=== PATIENT | male | born 1965 | race Caucasian/White ===

== ENCOUNTER 2021-01-28 12:40 | Outpatient (CLI) | payer OTHER ==
[2021-01-28 14:10] LABS: #Eosinphils 0.4 10x3/uL (0.0-0.5); #Monocytes 0.5 10x3/uL (0.0-1.1); #Neutrophils 4.3 10x3/uL (1.5-8.4); %Basophils 0.6 % (0.0-2.0); %Eosinophils 5.2 % (0.0-6.0); %Lymphocytes 25.7 % (18.0-47.0); %Monocytes 7.2 % (0.0-10.0); Hemoglobin 15.8 g/dL (13.5-17.5); Mean Corpuscular HGB CONC 34.8 g/dL (32.0-36.0); Mean Corpuscular Hemoglobin 31.2 pg (27.0-33.0); Mean Corpuscular Volume 89.5 fl (81.2-95.1); Mean Platelet Volume 9.6 fl (7.4-10.4); Platelet Count 223 10x3/uL (150-450); RBC Distribution Width 12.9 % (11.5-14.5); Red Blood Cell (RBC) Count 5.07 10x6/uL (4.32-5.72); White Blood Cell (WBC) Count 7.1 10x3/uL (3.5-10.5)
[2021-01-28 14:15] LABS: ALT (SGPT) 33 U/L (8-55); AST (SGOT) 15 U/L (5-34); Albumin 4.4 g/dL (3.5-5.0); Alkaline Phosphatase 109 U/L (40-110); Anion Gap 14 mmol/L (10-20); BUN (Urea Nitrogen) 12 mg/dL (8.4-25.7); Bilirubin, Total 1.8 mg/dL (0.2-1.2); Calc. Creatinine Clearance 0 mL/min (70-130); Calcium 9.5 mg/dL (7.8-10.44); Carbon Dioxide 23 mmol/L (22-29); Chloride 106 mmol/L (98-107); Globulin 2.7 g/dL (2.4-3.5); Glucose 121 mg/dL (70-105); Potassium 3.8 mmol/L (3.5-5.1); Protein, Total 7.1 g/dL (6.0-8.3); Sodium 139 mmol/L (136-145)
[2021-01-29 13:04] LABS: SARS-CoV-2 PCR by NAA Not Detected (NotDetected)
== END 2021-01-28 12:41 | disposition home or self-care (01) ==
LOC: LABBT 12:40
PROVIDERS: ATTEND Internal Medicine Cardiovascular Disease
DX: Z01.812 Encounter for preprocedural laboratory examination (principal); R07.9 Chest pain, unspecified; Z20.822 Contact with and (suspected) exposure to COVID-19
CPT/HCPCS: 80053; 85025; U0003; U0005

== ENCOUNTER 2021-01-31 | Day surgery (SDC) | payer OTHER | END 2021-01-31 10:12 | disposition home or self-care (01) | PROC: B2111ZZ Fluoroscopy of Multiple Coronary Arteries using Low Osmolar Contrast (ICD-10-PCS; principal; 2021-01-31) | PROC: 4A023N7 Measurement of Cardiac Sampling and Pressure, Left Heart, Percutaneous Approach (ICD-10-PCS; principal; 2021-01-31) ==

== ENCOUNTER 2021-02-05 14:00 | Inpatient (IN) | payer OTHER ==
[2021-02-05 12:13] VITALS: BMI 31.6
[2021-02-06] MEDS ORDERED: Albumin 5% 500 ML ONE (06:16)
[2021-02-06] MEDS ORDERED: Heparin 10,000 UNITS/1 ML VIAL 30,000 UNITS in Sodium Chloride 0.9% 1,000 ML FS SCH (06:30)
[2021-02-06] MEDS ORDERED: Dexmedetomidine 200 MCG/2 ML VIAL ONE (06:47)
[2021-02-06] MEDS ORDERED: Midazolam HCl 5 mg/5 ml Vial ONE (06:47)
[2021-02-06] MEDS ORDERED: SUGAMMADEX SODIUM 200 MG/2 ML VIAL ONE (06:47)
[2021-02-06] MEDS ORDERED: Fentanyl 250 MCG/5 ML VIAL ONE (06:47)
[2021-02-06] MEDS ORDERED: Sodium Chloride 0.9% 20 ML ONE (06:50)
[2021-02-06] MEDS ORDERED: PHENYLEPHRINE-NS 100 MCG/ML 10 ML SYRINGE ONE (07:05)
[2021-02-06] MEDS ORDERED: Midazolam HCl 2 mg/2 ml Vial ONE (07:08)
[2021-02-06] MEDS ORDERED: Ondansetron ODT 4 MG TAB ONE (07:08)
[2021-02-06] MEDS ORDERED: Protamine Sulfate 250 MG/25 ML VIAL ONE (07:36)
[2021-02-06] MEDS ORDERED: Papaverine 60 MG/2 ML VIAL ONE (07:36)
[2021-02-06] MEDS ORDERED: Heparin 30,000 units/30 ml VIAL ONE (07:36)
[2021-02-06] MEDS ORDERED: Heparin 5,000 UNITS/ML VIAL ONE (07:36)
[2021-02-06] MEDS ORDERED: PROPOFOL 200 MG/20 ML VIAL ONE (07:36)
[2021-02-06] MEDS ORDERED: Lidocaine 1% PF 5 ML VIAL ONE (07:36)
[2021-02-06] MEDS ORDERED: Potassium Chloride 60 MEQ/30 ML VIAL ONE (07:36)
[2021-02-06] MEDS ORDERED: Sodium Bicarb 50 MEQ/50 ML Abboject 8.4% SYRINGE ONE (07:36)
[2021-02-06] MEDS ORDERED: Thrombin 5000 UNITS/5 ML VIAL ONE (07:36)
[2021-02-06] MEDS ORDERED: Rocuronium Bromide 10 MG/ML (10ML VIAL) ONE (07:36)
[2021-02-06] MEDS ORDERED: Glycopyrrolate 0.2 MG/ML 5 ML SYRINGE ONE (07:36)
[2021-02-06] MEDS ORDERED: Lidocaine 2% PF 100 mg/5 ml Syringe ONE (07:36)
[2021-02-06] MEDS ORDERED: Vecuronium 10 MG VIAL ONE (07:36)
[2021-02-06] MEDS ORDERED: Magnesium Sulfate 1 GM/2 ML VIAL ONE (07:36)
[2021-02-06] MEDS ORDERED: Mannitol 12.5 GM/50 ML ONE (07:36)
[2021-02-06] MEDS ORDERED: Aminocaproic Acid 5 GM/20 ML VIAL ONE (07:36)
[2021-02-06] MEDS ORDERED: Norepinephrine 4 MG/4 ML VIAL ONE (07:36)
[2021-02-06] MEDS ORDERED: Cardioplegic Soln 1,000 ML BAG ONE (07:36)
[2021-02-06] MEDS ORDERED: Dexamethasone 20 MG/5 ML VIAL ONE (07:36)
[2021-02-06] MEDS ORDERED: Ondansetron PF 4 MG/2 ML Vial ONE (07:36)
[2021-02-06] MEDS ORDERED: Calcium Chloride 1 GM/10 ML Abboject SYRINGE ONE (07:36)
[2021-02-06] MEDS ORDERED: Nitroglycerin 50 MG/250 ML BOT ONE (07:36)
[2021-02-06] MEDS ORDERED: hydrALAZINE 20 MG/ML VIAL SLOW IVP PRN (10:59)
[2021-02-06] MEDS ORDERED: Hetastarch 6% 500 ML 500 ML IVPB PRN (10:59)
[2021-02-06] MEDS ORDERED: Promethazine HCl 25 MG/ML VIAL IM PRN (10:59)
[2021-02-06] MEDS ORDERED: DOPamine 400 MG/D5W 250 ML 250 ML IVPB PRN (10:59)
[2021-02-06] MEDS ORDERED: Morphine 2 MG/ML VIAL SLOW IVP PRN (10:59)
[2021-02-06] MEDS ORDERED: Potassium Chloride 20 MEQ/100 ML PREMIX BAG IVPB PRN (10:59)
[2021-02-06] MEDS ORDERED: niCARdipine 25 MG in Sodium Chloride 0.9% 250 ML 250 ML IVPB PRN (10:59)
[2021-02-06] MEDS ORDERED: Mag-Al 1200 mg/1200 mg/30 ML UDCUP PO PRN (10:59)
[2021-02-06] MEDS ORDERED: Acetaminophen 325 MG TAB PO PRN (10:59)
[2021-02-06] MEDS ORDERED: Bisacodyl 10 MG SUPP PR PRN (10:59)
[2021-02-06] MEDS ORDERED: Fentanyl 100 MCG/2 ML VIAL SLOW IVP PRN (10:59)
[2021-02-06] MEDS ORDERED: Post-Op Insulin Drip Protocol IVPB ONE (10:59)
[2021-02-06] MEDS ORDERED: Guaifenesin DM 100-10/5 ML UDCUP PO PRN (10:59)
[2021-02-06] MEDS ORDERED: Nitroglycerin 50 MG/250 ML BOT 250 ML IVPB PRN (10:59)
[2021-02-06] MEDS ORDERED: Ondansetron PF 4 MG/2 ML Vial IVP PRN (10:59)
[2021-02-06] MEDS ORDERED: Bisacodyl 5 MG TAB PO PRN (10:59)
[2021-02-06] MEDS ORDERED: Dextrose 5% in Water 1,000 ML IV PRN (11:30)
[2021-02-06] MEDS ORDERED: HUMULIN R 100 UNITS in Sodium Chloride 0.9% 100 ML IVPB SCH (11:30)
[2021-02-06] MEDS ORDERED: Dextrose 50% Abboject 50 ML SYRINGE IVP PRN (11:30)
[2021-02-06] MEDS: Ketorolac Tromethamine 30 MG/ML VIAL IVP SCH ×3 (11:46→23:48)
[2021-02-06] MEDS: Insulin Regular 300 UNITS/3 ML VIAL SC PRN ×2 (11:47→16:03)
[2021-02-06 11:59] LABS: #Eosinphils 0.2 thou/uL (0.0-0.7); #Lymphocytes 1.4 thou/uL (1.20-3.40); #Monocytes 0.7 thou/uL (0.11-0.59); #Neutrophils 12.5 thou/uL (1.40-6.50); %Basophils 0.2 % (0.0-1.0); %Eosinophils 1.3 % (0.0-10.0); %Lymphocytes 9.6 % (21.0-51.0); %Monocytes 4.5 % (0.0-10.0); %Neutrophils 84.4 % (42.0-75.0); Hemoglobin 11.8 g/dL (14.0-18.0); Mean Corpuscular HGB CONC 34.8 g/dL (32.0-36.0); Mean Corpuscular Hemoglobin 32.9 pg (27.0-31.0); Mean Corpuscular Volume 94.8 fL (78.0-98.0); Mean Platelet Volume 7.4 fL (7.4-10.4); Platelet Count 189 thou/uL (130-400); RBC Distribution Width 12.5 % (11.5-14.5); Red Blood Cell (RBC) Count 3.59 mill/uL (4.70-6.10); White Blood Cell (WBC) Count 14.8 thou/uL (4.8-10.8)
[2021-02-06] MEDS: Fentanyl 100 MCG/2 ML VIAL SLOW IVP PRN ×2 (12:00→12:44)
[2021-02-06 12:02] LABS: INR-International Normal Ratio 1.4; Prothrombin Time 17.1 sec (12.0-14.7)
[2021-02-06 12:03] LABS: PTT 34.8 sec (22.9-36.1)
[2021-02-06 12:10] LABS: Anion Gap 9 mmol/L (10-20); BUN (Urea Nitrogen) 13 mg/dL (8.4-25.7); Calc. Creatinine Clearance 155 mL/min (70-130); Carbon Dioxide 21 mmol/L (22-29); Chloride 114 mmol/L (98-107); Glucose 130 mg/dL (70-105); Potassium 4.6 mmol/L (3.5-5.1); Sodium 139 mmol/L (136-145)
[2021-02-06] MEDS: Lactated Ringer's 1,000 ML IV SCH ×2 (12:25→23:49)
[2021-02-06] MEDS ORDERED: Norepinephrine 8 MG/0.9% NS 250 ML IVPB SCH (12:30)
[2021-02-06] MEDS: HYDROcodone/Acetaminophen 5/325 mg Tablet PO PRN ×2 (14:07→20:11)
[2021-02-06] MEDS: CEFAZOLIN 2 GM in Premix Bag 1 BAG IVPB SCH ×2 (14:59→23:48)
[2021-02-06 17:36] LABS: Hemoglobin 11.5 g/dL (14.0-18.0)
[2021-02-06 17:52] LABS: Potassium 4.1 mmol/L (3.5-5.1)
[2021-02-06] MEDS: Famotidine/PF 20 mg/2ml Vial SLOW IVP SCH (20:13)
[2021-02-06] MEDS: Atorvastatin Calcium 20 MG TAB PO SCH (20:19)
[2021-02-07] MEDS: Insulin Regular 300 UNITS/3 ML VIAL SC PRN ×2 (01:26→04:11)
[2021-02-07] MEDS: HYDROcodone/Acetaminophen 5/325 mg Tablet PO PRN ×3 (01:49→19:36)
[2021-02-07 04:17] LABS: #Lymphocytes 1.3 thou/uL (1.20-3.40); #Monocytes 0.9 thou/uL (0.11-0.59); #Neutrophils 8.6 thou/uL (1.40-6.50); %Eosinophils 0.1 % (0.0-10.0); %Lymphocytes 11.8 % (21.0-51.0); %Neutrophils 80.1 % (42.0-75.0); Hemoglobin 10.5 g/dL (14.0-18.0); Mean Corpuscular HGB CONC 33.4 g/dL (32.0-36.0); Mean Corpuscular Hemoglobin 31.8 pg (27.0-31.0); Mean Corpuscular Volume 95.2 fL (78.0-98.0); Mean Platelet Volume 7.4 fL (7.4-10.4); Platelet Count 167 thou/uL (130-400); RBC Distribution Width 12.5 % (11.5-14.5); Red Blood Cell (RBC) Count 3.31 mill/uL (4.70-6.10); White Blood Cell (WBC) Count 10.7 thou/uL (4.8-10.8)
[2021-02-07 04:39] LABS: Anion Gap 9 mmol/L (10-20); BUN (Urea Nitrogen) 13 mg/dL (8.4-25.7); Calc. Creatinine Clearance 151 mL/min (70-130); Calcium 7.8 mg/dL (7.8-10.44); Carbon Dioxide 25 mmol/L (22-29); Chloride 107 mmol/L (98-107); Glucose 117 mg/dL (70-105); Sodium 137 mmol/L (136-145)
[2021-02-07] MEDS: Ketorolac Tromethamine 30 MG/ML VIAL IVP SCH ×3 (05:26→17:32)
[2021-02-07] MEDS: CEFAZOLIN 2 GM in Premix Bag 1 BAG IVPB SCH (05:59)
[2021-02-07] MEDS: Fentanyl 100 MCG/2 ML VIAL SLOW IVP PRN ×3 (08:03→20:51)
[2021-02-07] MEDS ORDERED: Aspirin 325 MG TAB PO SCH (09:00)
[2021-02-07] MEDS: Famotidine/PF 20 mg/2ml Vial SLOW IVP SCH (09:16)
[2021-02-07] MEDS: Polyethylene Glycol 3350 17 GM Packet PO SCH (09:16)
[2021-02-07] MEDS ORDERED: Bisacodyl 10 MG SUPP PR PRN (09:21)
[2021-02-07] MEDS ORDERED: Bisacodyl 5 MG TAB PO PRN (09:21)
[2021-02-07] MEDS ORDERED: Guaifenesin DM 100-10/5 ML UDCUP PO PRN (09:21)
[2021-02-07] MEDS ORDERED: Mineral Oil ENEMA PR PRN (09:21)
[2021-02-07] MEDS ORDERED: Mag-Al 1200 mg/1200 mg/30 ML UDCUP PO PRN (09:21)
[2021-02-07] MEDS ORDERED: Nitroglycerin 0.4 MG TAB (25 Tab Bottle) SL PRN (09:21)
[2021-02-07] MEDS ORDERED: Zolpidem Tartrate 5 MG TAB PO PRN (09:21)
[2021-02-07] MEDS: Atorvastatin Calcium 20 MG TAB PO SCH (20:23)
[2021-02-07] MEDS: Famotidine 20 MG TAB PO SCH (20:23)
[2021-02-08] MEDS: Ketorolac Tromethamine 30 MG/ML VIAL IVP SCH ×5 (00:39→23:49)
[2021-02-08] MEDS: HYDROcodone/Acetaminophen 5/325 mg Tablet PO PRN (03:01)
[2021-02-08] MEDS ORDERED: Diltiazem HCl 125 MG, Admixture Fee 1 EACH in Sodium Chloride 0.9% 100 ML IVPB SCH (06:45)
[2021-02-08] MEDS: Amiodarone 450 MG in Dextrose 5% in Water 250 ML IVPB SCH (09:43)
[2021-02-08] MEDS: Potassium Chloride 10 MEQ TAB PO SCH (09:48)
[2021-02-08] MEDS: Famotidine 20 MG TAB PO SCH ×2 (09:48→21:08)
[2021-02-08] MEDS: Aspirin 325 mg Enteric Coated Tablet PO SCH (09:48)
[2021-02-08] MEDS: Furosemide 40 MG TAB PO SCH (09:48)
[2021-02-08] MEDS: Polyethylene Glycol 3350 17 GM Packet PO SCH (09:49)
[2021-02-08] MEDS: Guaifenesin DM 100-10/5 ML UDCUP PO SCH ×3 (12:10→23:48)
[2021-02-08] MEDS: Benzonatate 100 MG CAP PO SCH ×2 (15:24→21:10)
[2021-02-08 17:25] LABS: Anion Gap 15 mmol/L (10-20); BUN (Urea Nitrogen) 10 mg/dL (8.4-25.7); Carbon Dioxide 25 mmol/L (22-29); Chloride 105 mmol/L (98-107); Potassium 3.6 mmol/L (3.5-5.1); Sodium 141 mmol/L (136-145)
[2021-02-08 17:26] LABS: Calc. Creatinine Clearance 164 mL/min (70-130); Calcium 7.9 mg/dL (7.8-10.44); Glucose 114 mg/dL (70-105)
[2021-02-08] MEDS: Atorvastatin Calcium 20 MG TAB PO SCH (21:08)
[2021-02-08] MEDS: Enoxaparin Sodium 40 MG/0.4 ML SYRINGE SC SCH (21:08)
[2021-02-09] MEDS: HYDROcodone/Acetaminophen 5/325 mg Tablet PO PRN ×2 (02:29→22:07)
[2021-02-09 05:02] LABS: Anion Gap 8 mmol/L (10-20); BUN (Urea Nitrogen) 10 mg/dL (8.4-25.7); Calc. Creatinine Clearance 160 mL/min (70-130); Calcium 7.9 mg/dL (7.8-10.44); Carbon Dioxide 30 mmol/L (22-29); Chloride 106 mmol/L (98-107); Glucose 106 mg/dL (70-105); Potassium 3.8 mmol/L (3.5-5.1); Sodium 140 mmol/L (136-145)
[2021-02-09] MEDS: Ketorolac Tromethamine 30 MG/ML VIAL IVP SCH ×2 (05:38→11:23)
[2021-02-09] MEDS: Guaifenesin DM 100-10/5 ML UDCUP PO SCH ×3 (05:38→17:08)
[2021-02-09] MEDS: Aspirin 325 mg Enteric Coated Tablet PO SCH (08:44)
[2021-02-09] MEDS: Furosemide 40 MG TAB PO SCH (08:44)
[2021-02-09] MEDS: Potassium Chloride 10 MEQ TAB PO SCH (08:44)
[2021-02-09] MEDS: Famotidine 20 MG TAB PO SCH ×2 (08:44→20:45)
[2021-02-09] MEDS: Polyethylene Glycol 3350 17 GM Packet PO SCH (08:45)
[2021-02-09] MEDS: Benzonatate 100 MG CAP PO SCH ×3 (08:45→20:49)
[2021-02-09] MEDS: Amiodarone 450 MG in Dextrose 5% in Water 250 ML IVPB SCH (08:52)
[2021-02-09] MEDS: Atorvastatin Calcium 20 MG TAB PO SCH (20:45)
[2021-02-09] MEDS: Enoxaparin Sodium 40 MG/0.4 ML SYRINGE SC SCH (20:45)
[2021-02-10] MEDS: Amiodarone 450 MG in Dextrose 5% in Water 250 ML IVPB SCH ×2 (00:29→16:52)
[2021-02-10] MEDS: Guaifenesin DM 100-10/5 ML UDCUP PO SCH ×5 (00:35→23:25)
[2021-02-10 04:51] LABS: Anion Gap 10 mmol/L (10-20); BUN (Urea Nitrogen) 11 mg/dL (8.4-25.7); Calc. Creatinine Clearance 151 mL/min (70-130); Carbon Dioxide 29 mmol/L (22-29); Chloride 106 mmol/L (98-107); Glucose 103 mg/dL (70-105); Potassium 3.9 mmol/L (3.5-5.1); Sodium 141 mmol/L (136-145)
[2021-02-10] MEDS: Polyethylene Glycol 3350 17 GM Packet PO SCH (09:25)
[2021-02-10] MEDS: Furosemide 40 MG TAB PO SCH (09:26)
[2021-02-10] MEDS: Potassium Chloride 10 MEQ TAB PO SCH (09:26)
[2021-02-10] MEDS: Aspirin 325 mg Enteric Coated Tablet PO SCH (09:26)
[2021-02-10] MEDS: Famotidine 20 MG TAB PO SCH ×2 (09:26→20:15)
[2021-02-10] MEDS: Benzonatate 100 MG CAP PO SCH ×3 (09:26→20:15)
[2021-02-10] MEDS: Amiodarone 200 MG TAB PO SCH (20:14)
[2021-02-10] MEDS: Atorvastatin Calcium 20 MG TAB PO SCH (20:15)
[2021-02-10] MEDS: Enoxaparin Sodium 40 MG/0.4 ML SYRINGE SC SCH (21:36)
[2021-02-11] MEDS: Guaifenesin DM 100-10/5 ML UDCUP PO SCH ×3 (05:04→18:28)
[2021-02-11 06:08] LABS: Anion Gap 13 mmol/L (10-20); BUN (Urea Nitrogen) 10 mg/dL (8.4-25.7); Calc. Creatinine Clearance 131 mL/min (70-130); Calcium 8.7 mg/dL (7.8-10.44); Carbon Dioxide 27 mmol/L (22-29); Chloride 105 mmol/L (98-107); Glucose 116 mg/dL (70-105); Potassium 3.7 mmol/L (3.5-5.1); Sodium 141 mmol/L (136-145)
[2021-02-11] MEDS: Polyethylene Glycol 3350 17 GM Packet PO SCH (09:13)
[2021-02-11] MEDS: Potassium Chloride 10 MEQ TAB PO SCH (09:13)
[2021-02-11] MEDS: Amiodarone 200 MG TAB PO SCH ×2 (09:13→20:36)
[2021-02-11] MEDS: Aspirin 325 mg Enteric Coated Tablet PO SCH (09:13)
[2021-02-11] MEDS: Famotidine 20 MG TAB PO SCH ×2 (09:13→20:36)
[2021-02-11] MEDS: Benzonatate 100 MG CAP PO SCH ×3 (09:14→20:09)
[2021-02-11] MEDS ORDERED: Amiodarone 450 MG, Admixture Fee 1 EACH in Dextrose 5% in Water 250 ML IVPB SCH (10:15)
[2021-02-11] MEDS: Enoxaparin Sodium 100 MG/ML SYRINGE SC SCH (20:35)
[2021-02-11] MEDS: Atorvastatin Calcium 20 MG TAB PO SCH (20:36)
[2021-02-12] MEDS: Guaifenesin DM 100-10/5 ML UDCUP PO SCH ×5 (00:14→23:34)
[2021-02-12] MEDS: HYDROcodone/Acetaminophen 5/325 mg Tablet PO PRN ×2 (01:23→23:33)
[2021-02-12 04:44] LABS: Hemoglobin 10.5 g/dL (14.0-18.0); Platelet Count 293 thou/uL (130-400)
[2021-02-12] MEDS ORDERED: Aspirin 325 mg Enteric Coated Tablet PO SCH (07:33)
[2021-02-12] MEDS: Amiodarone 200 MG TAB PO SCH ×2 (08:33→21:38)
[2021-02-12] MEDS: Lisinopril 2.5 MG TAB PO SCH (08:33)
[2021-02-12] MEDS: Aspirin 81 mg Enteric Coated Tablet PO SCH (08:33)
[2021-02-12] MEDS: Potassium Chloride 10 MEQ TAB PO SCH (08:34)
[2021-02-12] MEDS: Enoxaparin Sodium 100 MG/ML SYRINGE SC SCH ×2 (08:34→21:38)
[2021-02-12] MEDS: Famotidine 20 MG TAB PO SCH ×2 (08:34→21:38)
[2021-02-12] MEDS: Benzonatate 100 MG CAP PO SCH ×3 (08:35→21:38)
[2021-02-12] MEDS: Polyethylene Glycol 3350 17 GM Packet PO SCH (08:35)
[2021-02-12] MEDS: Atorvastatin Calcium 20 MG TAB PO SCH (21:38)
[2021-02-13] MEDS ORDERED: PROPOFOL 20 ML ONE (06:59)
[2021-02-13] MEDS: Guaifenesin DM 100-10/5 ML UDCUP PO SCH ×2 (07:21→11:24)
[2021-02-13] MEDS ORDERED: PROPOFOL 200 MG/20 ML VIAL ONE (07:36)
[2021-02-13] MEDS: Lisinopril 2.5 MG TAB PO SCH (09:45)
[2021-02-13] MEDS: Amiodarone 200 MG TAB PO SCH (09:45)
[2021-02-13] MEDS: Famotidine 20 MG TAB PO SCH (09:46)
[2021-02-13] MEDS: Enoxaparin Sodium 100 MG/ML SYRINGE SC SCH (09:47)
[2021-02-13] MEDS: Polyethylene Glycol 3350 17 GM Packet PO SCH ×2 (09:48→11:27)
[2021-02-13] MEDS: Benzonatate 100 MG CAP PO SCH (09:48)
[2021-02-13] MEDS: Aspirin 81 mg Enteric Coated Tablet PO SCH (10:28)
[2021-02-13 11:09] LABS: SARS-CoV-2 NAA Rapid Test Not Detected (NotDetected)
[2021-02-13 11:36] VITALS: TEMP 97.4
[2021-02-13 11:42] VITALS: BP 99/59
[2021-02-13] MEDS ORDERED: Apixaban 5 MG TAB PO SCH (21:00)
[2021-02-19] MEDS ORDERED: Amiodarone 200 MG TAB PO SCH (09:00)
== END 2021-02-13 13:12 | disposition home or self-care (01) | DRG 236 ==
LOC: SURG A 02-06 05:46 → CCU 02-06 11:32 → EDSTATUS 02-06 14:00 → 2NO 02-07 20:47
PROVIDERS: ADMIT Thoracic Surgery (Cardiothoracic Vascular Surgery); ATTEND Thoracic Surgery (Cardiothoracic Vascular Surgery)
PROC: 02100Z9 Bypass Coronary Artery, One Artery from Left Internal Mammary, Open Approach (ICD-10-PCS; principal; 2021-02-06)
PROC: 02100AW Bypass Coronary Artery, One Artery from Aorta with Autologous Arterial Tissue, Open Approach (ICD-10-PCS; 2021-02-06)
PROC: 021009W Bypass Coronary Artery, One Artery from Aorta with Autologous Venous Tissue, Open Approach (ICD-10-PCS; 2021-02-06)
PROC: 03BC3ZZ Excision of Left Radial Artery, Percutaneous Approach (ICD-10-PCS; 2021-02-06)
PROC: 06BQ4ZZ Excision of Left Saphenous Vein, Percutaneous Endoscopic Approach (ICD-10-PCS; 2021-02-06)
PROC: 5A1221Z Performance of Cardiac Output, Continuous (ICD-10-PCS; 2021-02-06)
PROC: 3E033XZ Introduction of Vasopressor into Peripheral Vein, Percutaneous Approach (ICD-10-PCS; 2021-02-06)
PROC: 30233R1 Transfusion of Nonautologous Platelets into Peripheral Vein, Percutaneous Approach (ICD-10-PCS; 2021-02-06)
PROC: B24BZZ4 Ultrasonography of Heart with Aorta, Transesophageal (ICD-10-PCS; 2021-02-13)
PROC: 5A2204Z Restoration of Cardiac Rhythm, Single (ICD-10-PCS; 2021-02-13)
DX: I25.10 Atherosclerotic heart disease of native coronary artery without angina pectoris (principal); I97.190 Other postprocedural cardiac functional disturbances following cardiac surgery; F17.210 Nicotine dependence, cigarettes, uncomplicated; Z20.822 Contact with and (suspected) exposure to COVID-19; E66.9 Obesity, unspecified; I10 Essential (primary) hypertension; J30.2 Other seasonal allergic rhinitis; M54.9 Dorsalgia, unspecified; G89.29 Other chronic pain; E78.5 Hyperlipidemia, unspecified; I48.91 Unspecified atrial fibrillation; Y83.8 Other surgical procedures as the cause of abnormal reaction of the patient, or of later complication, without mention of misadventure at the time of the procedure; Z86.73 Personal history of transient ischemic attack (TIA), and cerebral infarction without residual deficits; Z79.82 Long term (current) use of aspirin; Z79.899 Other long term (current) drug therapy; Z68.30 Body mass index [BMI] 30.0-30.9, adult; Z71.6 Tobacco abuse counseling
CPT/HCPCS: 36415; 36416; 36430; 71045; 80048; 85014; 85018; 85025; 85049; 85610; 85730; 86850; 86900; 86901; 92960; 93005; 93010; 93312; 93798; 94640; 97139; J0282; J0690; J1100; J1642; J1644; J1650; J1815; J1885; J2001; J2150; J2250; J2405; J2440; J2704; J2720; J3010; J3370; J3475; J3480; J3490; J7070; J7120; J7620; P9035; P9045; Q0162; S0017; S0028; U0002

== ENCOUNTER 2021-02-05 15:01 | Outpatient (CLI) | payer OTHER ==
[2021-02-05 17:48] LABS: SARS-CoV-2 NAA Rapid Test Not Detected (NotDetected)
== END 2021-02-05 15:02 | disposition home or self-care (01) ==
LOC: LABBT 15:01
PROVIDERS: ATTEND Thoracic Surgery (Cardiothoracic Vascular Surgery)
DX: Z01.812 Encounter for preprocedural laboratory examination (principal); Z20.822 Contact with and (suspected) exposure to COVID-19
CPT/HCPCS: 86850; 86900; 86901; U0002